=== PATIENT | male | born 1980 | race Caucasian/White ===

== ENCOUNTER 2023-07-12 11:56 | Emergency (ER) | payer SELFPAY ==
[2023-07-12 12:39] LABS: BASOPHILS PERCENT AUTO 0.7 % (0.0-1.0); EOSINOPHILS PERCENT AUTO 1.5 % (1.0-3.0); HEMATOCRIT 49.5 % (40.0-54.0); HEMOGLOBIN 17.5 g/dL (14.0-18.0); LYMPHOCYTES PERCENT AUTO 25.9 % (20.5-50.1); MEAN CORPUSCULAR HEMOGLOBIN 29.3 pg (27.0-34.0); MEAN CORPUSCULAR HGB CONC 35.4 g/dL (33.0-35.0); MEAN CORPUSCULAR VOLUME 82.8 fL (80-100); MONOCYTES PERCENT AUTO 6.8 % (2-8); NEUTROPHILS PERCENT AUTO 65.1 % (42.2-75.2); PLATELET COUNT,PLT 292 10^3/uL (150-450); RED BLOOD CELL COUNT 5.98 10^6/uL (4.6-6.2); WHITE BLOOD CELL COUNT,WBC 8.8 10^3/uL (5.0-10.0)
[2023-07-12] MEDS: LORazepam 2 MG/ML SDV IVPUSH ONE (12:53)
[2023-07-12 12:59] LABS: ANION GAP 12.7 mEq/L (7-13); BILIRUBIN TOTAL 0.5 mg/dL (0.2-1.0); BUN/CREATININE RATIO 10.5 (No establ ref range); CALCIUM 9.2 mg/dL (8.5-10.1); CREATININE 1.33 mg/dL (0.70-1.30); EST CRCL DRUG DOSING (CG) 86.11 mL/min; POTASSIUM,K 3.7 mmol/L (3.5-5.1)
== END 2023-07-12 13:24 | disposition home or self-care (01) ==
LOC: DL.ED 11:56
DX: F43.9 Reaction to severe stress, unspecified (principal); F41.8 Other specified anxiety disorders
CPT/HCPCS: 36415; 80053; 84484; 85025; 99284